=== PATIENT | male | born 1965 | race Caucasian/White ===

== ENCOUNTER 2020-04-30 04:51 | Emergency (ER) | payer OTHER ==
[~2020-04-30 04:51] MED LIST: BACTRIM DS TAB1 EACH PO; CEPHALEXIN500 MG PO; IBUPROFEN800 MG PO; MACROBID100 MG PO; METFORMIN HCL500 MG PO; NORCO 5-325 TA1 EAC1 PO
== END 2020-04-30 06:10 | disposition home or self-care (01) ==
LOC: FER 04:51
DX: S92.311A Displaced fracture of first metatarsal bone, right foot, initial encounter for closed fracture (principal); E11.9 Type 2 diabetes mellitus without complications; F17.210 Nicotine dependence, cigarettes, uncomplicated; Z85.46 Personal history of malignant neoplasm of prostate; Z86.19 Personal history of other infectious and parasitic diseases; Z87.19 Personal history of other diseases of the digestive system; W19.XXXA Unspecified fall, initial encounter; Y92.002 Bathroom of unspecified non-institutional (private) residence as the place of occurrence of the external cause
CPT/HCPCS: 73630; 96372; J1170; J2550

== ENCOUNTER 2020-05-11 09:57 | Emergency (ER) | payer OTHER ==
[2020-05-11] MEDS ORDERED: XTANDI40 MG PO (10:47)
== END 2020-05-11 11:49 | disposition home or self-care (01) ==
LOC: FER 09:57
DX: S93.601A Unspecified sprain of right foot, initial encounter (principal); S80.01XA Contusion of right knee, initial encounter; F17.210 Nicotine dependence, cigarettes, uncomplicated; Z85.46 Personal history of malignant neoplasm of prostate; W19.XXXA Unspecified fall, initial encounter; Y92.009 Unspecified place in unspecified non-institutional (private) residence as the place of occurrence of the external cause
CPT/HCPCS: 73564; 73630

== ENCOUNTER 2020-06-24 11:44 | Emergency (ER) | payer OTHER ==
[~2020-06-24 11:44] MED LIST changes: +XTANDI40 MG PO
[2020-06-24] MEDS ORDERED: NORCO 5-325 TA1 EACH PO (15:10)
== END 2020-06-24 15:30 | disposition home or self-care (01) ==
LOC: FER 11:44
DX: S92.322A Displaced fracture of second metatarsal bone, left foot, initial encounter for closed fracture (principal); S92.332A Displaced fracture of third metatarsal bone, left foot, initial encounter for closed fracture; S92.342A Displaced fracture of fourth metatarsal bone, left foot, initial encounter for closed fracture; S92.352A Displaced fracture of fifth metatarsal bone, left foot, initial encounter for closed fracture; M25.572 Pain in left ankle and joints of left foot; E11.9 Type 2 diabetes mellitus without complications; F17.210 Nicotine dependence, cigarettes, uncomplicated; Z85.46 Personal history of malignant neoplasm of prostate; Z86.19 Personal history of other infectious and parasitic diseases; Z88.8 Allergy status to other drugs, medicaments and biological substances; W19.XXXA Unspecified fall, initial encounter
CPT/HCPCS: 73610; 73630

== ENCOUNTER 2020-07-26 06:15 | Emergency (ER) | payer OTHER ==
[~2020-07-26 06:15] MED LIST changes: +NORCO 5-325 TA1 EACH PO
[2020-07-26 07:15] LABS: BASOPHIL 0.7 % (0-2); EOSINOPHIL 4.6 % (0-5); HCT 34.7 % (42.0-52.0); HGB 11.9 g/dl (13.2-18.0); LYMPHOCYTE 19.5 % (15-48); MCH 33.9 pg (25.0-31.0); MCHC 34.3 g/dL (32.0-36.0); MCV 98.9 fL (78.0-100.0); MONOCYTE 9.8 % (0-12); MPV 11.2 fL (6.0-9.5); NEUTROPHIL 65.1 % (41-80); NRBC 0; RBC 3.51 M/uL (4.70-6.00); RDW 13.7 % (11.5-14.0); WBC 3.1 K/uL (4.0-10.5)
[2020-07-26 07:30] LABS: ALBUMIN 3.3 g/dL (3.4-5.0); BILIRUBIN - TOTAL 0.3 mg/dL (0.2-1.0); BUN/CREAT RATIO (CALC) 20.6 RATIO; CREATININE 0.63 mg/dL (0.67-1.17); GLOBULIN (CALCULATION) 4.1 g/dL; POTASSIUM 4.3 mmol/L (3.5-5.1); TOTAL PROTEIN 7.4 g/dL (6.4-8.2)
[2020-07-26 07:34] LABS: PLT 67 K/uL (150-400)
[2020-07-26] MEDS ORDERED: PERCOCET 10-321 EACH PO (09:09)
== END 2020-07-26 09:38 | disposition home or self-care (01) ==
LOC: FER 06:15
PROVIDERS: Emergency Medicine Emergency Medical Services
DX: S82.301A Unspecified fracture of lower end of right tibia, initial encounter for closed fracture (principal); S82.831A Other fracture of upper and lower end of right fibula, initial encounter for closed fracture; R55 Syncope and collapse; I45.10 Unspecified right bundle-branch block; F17.210 Nicotine dependence, cigarettes, uncomplicated; Z86.19 Personal history of other infectious and parasitic diseases; Z85.07 Personal history of malignant neoplasm of pancreas; Z92.21 Personal history of antineoplastic chemotherapy; W19.XXXA Unspecified fall, initial encounter; Y92.002 Bathroom of unspecified non-institutional (private) residence as the place of occurrence of the external cause
CPT/HCPCS: 36415; 71045; 73590; 73610; 73630; 80053; 84484; 85025; 93005; 96374; 96375; 96376; J1170; J2405; J7030